=== PATIENT | female | born 1945 | race Caucasian/White ===

== ENCOUNTER → 2016-11-02 | Outpatient (CLI) | payer MEDICARE, OTHER ==
[~2016-11-02] MED LIST: ALBU8.5H INH; AMLO10TA4 PO; ATOR80TA17 PO; BUDE10.2 INH; CALC-587 PO; COFF400C; GABA-338 PO; HYDR25TA PO; LACT1CAP67 PO; MULT-806 PO; RANI150T12 PO; SERT-77 PO; SOTA80TA42 PO; UBID1CAP47 PO; [UNRECOGNIZED DRUG - REMARK] PO
[2016-11-02 17:00] LABS: HCT - HEMATOCRIT 29.7 % (36-46); HGB - HEMOGLOBIN 8.3 GM/DL (12-16); MEAN CORPUSCULAR HGB 22.8 UUG (26-34); MEAN CORPUSCULAR HGB CONC(MCHC 27.9 GM/DL (31-37); MEAN CORPUSCULAR VOLUME 81.6 UM3 (80-100); MEAN PLATELET VOLUME 8.7 UM3 (9.4-12.4); RED BLOOD COUNT 3.64 M/MM3 (4.00-5.20); WBC - WHITE BLOOD COUNT 9.5 T/MM3 (4.5-11.0)
[2016-11-02 17:16] LABS: BAND NEUTROPHILS # 0.3 T/MM3; BASOPHILS # (MANUAL) 0.1 T/MM3 (0-0.2); LYMPHOCYTES # (MANUAL) 2.2 T/MM3 (1-4.8); NEUTROPHILS #(MANUAL)-ABSOLUTE 6.9 T/MM3 (1.8-7.7); TOTAL CELLS COUNTED 100 %
[2016-11-02 17:17] LABS: HYPOCHROMASIA 1+
== END ==
LOC: LAB 16:45
PROVIDERS: ATTEND Surgery
DX: D50.9 Iron deficiency anemia, unspecified (principal)
CPT/HCPCS: 36415; 85007; 85027

== ENCOUNTER 2016-11-11 07:17 | Day surgery (SDC) | payer MEDICARE, OTHER ==
[~2016-11-11] VITALS: Ht 162.6 cm; Wt 135.0 kg
[2016-11-11] VITALS (8 sets, daily range): BP systolic 96–143; BP diastolic 56–79; PULSE 70–82; RESP 16–24; TEMP 98.1–98.3; O2SAT 93–97; Ht 162.6 cm; Wt 135.0 kg
[~2016-11-11 07:17] MED LIST changes: -COFF400C; +FERR-70 PO; +LIDOCAINE 1% (10mg/ml) 2ml SDV INJ ONE; +LR 1,000 ML IV SCH; +OMEP20CA10 PO; -RANI150T12 PO; -[UNRECOGNIZED DRUG - REMARK] PO
--- OUTSIDE RECORDS SUMMARY | 2016-11-11 07:22 | XMS REPORT | Continuity of Care Document ---
Author Author [facility] Organization [facility] Address Unknown Phone Unavailable Allergies Medications Problems Procedures Results Encounters ACCT No. Visit Date/Time Discharge Status Pt. Type Provider Facility Loc./Unit Complaint [id number] 08/11/2016 10:20:00 Document Registration
--- OUTSIDE RECORDS SUMMARY | 2016-11-11 07:22 | XMS REPORT | Referral Summary ---
Author Author [facility] Organization [facility] Address Unknown Phone Unavailable Care Team Providers Care Toll Relief Operator Name Role Phone Saad Faria Primary Care Physician [phone] Encounter [facility] [id number] Date(s): 09/19/16 - 09/19/16 [facility] [address], [place] [address] Discharge Disposition: 01-Home or Self Care Attending Physician: Chase Medina MD Vital Signs No data available for this section Problem List No data available for this section Allergies, Adverse Reactions, Alerts No data available for this section Medications No data available for this section Results No data available for this section Immunizations No data available for this section Procedures No data available for this section Social History No data available for this section Assessment and Plan No data available for this section
--- NOTE | 2016-11-11 07:56 | NUR ---
ANESTHESIA ORDERS Azeem CHAUDHRY CRNA INFORMED THAT PT STATES SHE HAD A COUGH DROP AT ABOUT 0700. IN ADDITION, UPON PHYSICAL EXAM, PT NOTED TO HAVE COURSE WHEEZING ON EXPIRATION AND REQUIRES 4L O2 TO MAINTAIN SAT. THIS IS A HOME ORDER. NEW ORDERS RECEIVED FOR XOPENEX BREATHING TREATMENT.
[2016-11-11] MEDS ORDERED: LEVALBUTEROL INH.SOLN. 1.25mg/3ml Neb. AEROSOL ONE (08:00)
--- NOTE | 2016-11-11 10:03 | ANESPREOP ---
Anesthesia Record Date and Time DATE: 11/11/16 TIME: 10:00 Proposed Surgical Procedure COLONOSCOPY AND ESOPHAGOGASTRODUODENOSCOPY NPO since: 1800 solid food, 0600 cough drop Allergies: Coded Allergies: Sulfa (Sulfonamide Antibiotics) (Verified Allergy, Intermediate, HIVES, 06/11) tramadol (Verified Allergy, Intermediate, ITCHING, 04/10/12) Uncoded Allergies: BEE STINGS (Allergy, Intermediate, SWELLING, 04/14/08) Ht/Wt/BMI Height: 5 ' 4.00 " Weight: 135.000 kg BMI: 51.1 kg/m2 Vital Signs Date Time Temp Pulse Resp B/P Pulse Ox O2 Delivery O2 Flow Rate FiO2 11/11/16 08:17 66 11/11/16 08:17 16 97 11/11/16 07:43 98.3 143/79 Nasal Cannula 4.00 Medications Inpatient Medications Current Medications Medications (Trade) Dose Ordered Sig/Damon Start Time Stop Time Status Last Admin Dose Admin Lactated Ringer's (Lactated Ringers) 1,000 ml @ 50 mls/hr Q20H 11/11/16 07:00 11/11/16 08:41 50 MLS/HR Albuterol Sulfate (Proair HFA 90 mcg/actuation) 8.5 Gm Hfa.aer.ad, 1 PUFF INH PRN, (Reported) Last Taken: on 11/10/16 1600 Amlodipine Besylate (Norvasc) 10 Mg Tablet, 10 MG PO DAILY, (Reported) Last Taken: on 11/11/16 0600 Atorvastatin Calcium (Lipitor) 80 Mg Tablet, 1 TAB PO DAILY, (Reported) Last Taken: on 11/10/16 0900 Budesonide/Formoterol Fumarate (Symbicort 160- 4.5 Mcg Inhaler) 10.2 Gm Hfa.aer.ad, 2 PUFF INH BID, (Reported) Last Taken: on 11/10/16 0900 Calcium Carbonate/Vitamin D3 (Calcium + D Tablet) 1 Udtab Tablet, 1 TAB PO DAILY, (Reported) Last Taken: on 11/10/16 0900 Ferrous Sulfate (Ferrous Sulfate) 325 Mg Tablet , 1 TAB PO TIDWM, (Reported) BEST WITH FOOD. Last Taken: on 11/10/16 1800 Gabapentin (Gabapentin) 300 Mg Capsule, 1 CAP PO BID, (Reported) Last Taken: on 11/10/16 1200 Hydrochlorothiazide (Hydrochlorothiazide) 25 Mg Tablet, 1 TAB PO DAILY, (Reported) Last Taken: on 11/10/16 0900 Lactobacillus Rhamnosus Gg (Probiotic) 1 Each Capsule, 1 EACH PO DAILY, (Reported) Last Taken: on 11/10/16 09 Multivitamins (Multivitamin) 1 Tab Tablet, 1 TAB PO DAILY, (Reported) Last Taken: on 11/10/16 09 Omeprazole (Omeprazole) 20 Mg Capsule.dr, 20 MG PO ACB, (Reported) Take 1 capsule, by mouth, one time a day (before breakfast). Last Taken: on 11/11/16 06 Sertraline Hcl (Zoloft) 100 Mg Tablet, 100 MG PO DAILY, (Reported) Last Taken: on 11/10/16 09 Sotalol Hcl (Sotalol) 80 Mg Tablet, 80 MG PO BID, (Reported) Last Taken: on 11/11/16 06 Ubidecarenone/Vit E Acetate (Co Q-10 100 Mg Softgel) 1 Each Capsule, 1 EACH PO DAILY, (Reported) Last Taken: on 11/10/16 09 Currently on Beta Amada: Yes Beta Amada Last Taken: 11/11/16 06 Medical/Surgical History Anesthesia PMH: Reports: *Dyspnea (UPON EXERTION), *Hypertension (TAKES MEDS), Anxiety, Arthritis (OSTEOARTHRITIS), COPD (oxygen 4l/nc), Depression, Hiatal Hernia, Obesity (Morbid), Other (fibromyalgia), Reflux (controlled), Sleep Apnea Smoking Status: Former smoker (quit 20 years ago.) # of Packs per Day: 1 # of Years: 33 Use Chewing Tobacco?: No Second Hand Exposure: No Substance Use Type: does not use Alcohol Intake: daily Last Drink: unknown HX of Last Menstrual Period: AGE 54 Past Surgical History Orthopedic Surgeries: Yes - TOTAL RT KNEE AND BILATERAL HIP REPLACEMENT Abdominal Surgeries: No Genitourinary Surgeries: No Cardiac Surgeries: No Endocrine Surgeries: No Reproductive Surgeries: No Neurological Surgeries: No Ear Surgeries: No Nose Surgeries: Yes - SEPTOPLASTY Throat Surgeries: No Other Surgeries: Yes - C SCOPE, hemorrhoidectomy,EGD Anesthesia Adverse Reactions: FOUND none Family Hx of Anesthesia Advers: none Hx of Motion Sickness: No Physical Exam Respiratory: Bilat breath sounds equal, Rales (mild), Wheezing (mild experatory ) Cardiovascular: FOUND Regular rate, rhythm Airway Assessment Mallampati Score: III TMD: 3 Fingerbreadths Neck Extension: Poor Overall Assessment: May Be Diff Intubation ASA: 3 Plan Anesthesia Plan: TIVA, GETA Discussion Discussed risks/options/alternatives of anesthesia and questions answered. Patient consents. Nursing pain assessment noted. Present: Family Member Attestation Statement Prior to the delivery of any anesthetic medication, I examined the patient, developed the plan, obtained the patient's consent and discussed the risk and benefits of the procedure with the patient/guardian. JACEK CHAUDHRY CRNA Nov 11, 2016 10:03
[2016-11-11] MEDS ORDERED: LIDOCAINE VISCOUS 2% Oral Soln 15ml UD ONE (10:40)
[2016-11-11] MEDS ORDERED: BENZOCAINE 20% Top. Anesth. SPRAY UD ONE (10:40)
[2016-11-11] MEDS ORDERED: PROPOFOL 500mg 50 ML IV ONE ×3 (10:51→11:55)
--- NOTE | 2016-11-11 12:13 | GSPOSTPROC ---
Immediate Operative Note DATE: 11/11/16 TIME: 12:12 Postop Diagnosis: Anemia Surgical Procedure: EGD w/Biopsies, C-scope w/Polypectomy Surgeon: Scott ASA: 3 SANG LOPEZ MD Nov 11, 2016 12:13
--- NOTE | 2016-11-11 14:12 | ANESPO ---
Post-Op Note Date 11/11/16 Time: 14:11 Status Pt Participated in Evaluation: Pt participated by phone Vital Signs Date Time Temp Pulse Resp B/P Pulse Ox O2 Delivery O2 Flow Rate FiO2 11/11/16 12:25 72 16 124/68 93 Nasal Cannula 4.00 11/11/16 12:10 98.1 Respiratory Function: Airway patent, Regular respirations Cardiovascular Function: Regular pulse Mental Status: Alert/oriented Pain Level Intensity: 0 Hydration: Taking po fluids Complications during Recovery None apparent Follow-Up Instructions Instructions Per Surgeon ALEXANDRIA LEWIS I SEISMIC PROSPECTING OBSERVER HELPER Nov 11, 2016 14:11
--- NOTE | 2016-11-11 20:25 | OPNOTEF ---
DATE OF OPERATION 11/11/2016 PREOPERATIVE DIAGNOSES 1. Iron deficiency anemia. 2. Gastroesophageal reflux disease. 3. Extensive colonic diverticulosis. 4. Personal history of adenomatous colon polyps. 5. Internal and external hemorrhoids. POSTOPERATIVE DIAGNOSES 1. Iron deficiency anemia. 2. Gastroesophageal reflux disease. 3. Small hiatal hernia. 4. Chronic gastritis. 5. Mild duodenitis. 6. Extensive colonic diverticulosis. 7. Cecal polyp. 8. Internal and external hemorrhoids. OPERATION Esophagogastroduodenoscopy with biopsies and total colonoscopy with polypectomy. SURGEON Evgeny Chavez MD ANESTHESIA TIVA ASA CLASS 3. FINDINGS The esophagus appeared completely normal. There was no distal esophagitis. There were no esophageal erosions or ulcers. There were no Barclay's esophagus changes at the esophagus. The patient does have a small hiatal hernia. There were some changes of the gastric antrum which looked like some mild chronic gastritis. There were no gastric erosions or ulcers. There was some mild duodenitis. There were no duodenal erosions or ulcers. No bright red blood or old blood was seen anywhere at the upper gastrointestinal tract. No source for bleeding which would lead to iron deficiency anemia was seen at the upper gastrointestinal tract. DESCRIPTION OF PROCEDURE There were no colon or rectal tumors. The patient did have one polyp at the cecum. There were no rectal polyps. There was no melanosis coli. There were no colonic angiodysplasia lesions. The patient does have diverticulosis throughout the colon. There was no inflammatory bowel disease. The patient does have prominent internal and external hemorrhoids. No bright red blood or old blood was seen at the colon or rectum. No obvious source for bleeding which would lead to iron deficiency anemia was found at the colon or rectum. DESCRIPTION OF OPERATION The patient was brought to the endoscopy room. The patient was placed in the left lateral recumbent position on the cart in the endoscopy room. The patient was premedicated with intravenous sedation medication administered by the nurse transit planner. The Olympus upper GI endoscope was used. The upper GI endoscope was introduced into the esophagus. The upper GI endoscope was advanced down through the esophagus and stomach and into the duodenum. The upper GI endoscope was withdrawn from the duodenum back into the stomach. The upper GI endoscope was retroflexed and the gastroesophageal junction was viewed from below. The upper GI endoscope was straightened out. A sample of prepyloric antral gastric mucosa was obtained with the endoscopic biopsy forceps for CLOtest studies. The endoscopic biopsy forceps was used to perform some biopsies of antral gastric mucosa. These were submitted for study by the pathologist. The upper GI endoscope was then withdrawn out through the stomach and esophagus and removed from the patient. The patient was kept in the left lateral recumbent position on the cart in the endoscopy room. The patient continued to receive intravenous sedation medication administered by the nurse transit planner. Total colonoscopy was performed. The Olympus colonoscope was used. The colonoscope was introduced into the rectum. The colonoscope was advanced up through the rectum and colon all the way up to the cecum. The appendiceal orifice was visualized. The ileocecal valve was visualized. A cecal polyp was present. This polyp was removed with the electrocautery snare device and retrieved and submitted as a specimen for study by the pathologist. The colonoscope was then withdrawn out through the colon and rectum and removed from the patient. Digital rectal examination was performed. Findings throughout the procedure were as described above. The patient did continue to receive intravenous sedation medication administered by the nurse transit planner throughout the operation. The patient did tolerate the operation well. JEOVANY
== END 2016-11-11 13:50 | disposition home or self-care (01) ==
LOC: SCU 07:17
PROVIDERS: ATTEND Surgery
DX: K29.60 Other gastritis without bleeding (principal); K29.80 Duodenitis without bleeding; K21.9 Gastro-esophageal reflux disease without esophagitis; D50.9 Iron deficiency anemia, unspecified; K44.9 Diaphragmatic hernia without obstruction or gangrene; D12.0 Benign neoplasm of cecum; K57.30 Diverticulosis of large intestine without perforation or abscess without bleeding; Z86.010 Personal history of colon polyps; K64.4 Residual hemorrhoidal skin tags; K64.8 Other hemorrhoids; I49.3 Ventricular premature depolarization; G47.30 Sleep apnea, unspecified; I10 Essential (primary) hypertension; E66.01 Morbid (severe) obesity due to excess calories; Z68.43 Body mass index [BMI] 50.0-59.9, adult; J44.9 Chronic obstructive pulmonary disease, unspecified; F32.9 Major depressive disorder, single episode, unspecified; M79.7 Fibromyalgia; E78.5 Hyperlipidemia, unspecified; I87.2 Venous insufficiency (chronic) (peripheral); R32 Unspecified urinary incontinence; Z79.899 Other long term (current) drug therapy
CPT/HCPCS: 43235; 45385; 87081; 94640; J7120; J7614

== ENCOUNTER → 2016-11-17 | Outpatient (CLI) | payer MEDICARE, OTHER ==
[~2016-11-17] MED LIST changes: -LIDOCAINE 1% (10mg/ml) 2ml SDV INJ ONE; -LR 1,000 ML IV SCH
--- NOTE | 2016-11-17 10:45 | DI ---
Indication: ITS.REASON: R06.02 SHORTNESS OF BREATH PROCEDURE: US ABDOMINAL AORTA, NON-DUPLEX: Encounter: Initial Comparison: None Technique: Grayscale sonographic imaging of the abdominal aorta was performed. Findings: No aortic aneurysm identified. The proximal, middle and distal aorta is normal in caliber. Noted is a large cystic structure in the midline abdomen at the level of the umbilicus measuring 14.5 x 14.3 x 13.7 cm in size which appears separate from the bladder. No internal vascularity within this structure. Impression: Large cystic mass in the midline abdomen of uncertain etiology. This could be due to ovarian cystic neoplasm, enteric duplication cyst, unusual bladder diverticulum or urachal abnormality among other possibilities. Recommend contrast enhanced CT of the abdomen and pelvis for further evaluation. .
== END ==
LOC: IMA 09:49
PROVIDERS: ATTEND Family Medicine
DX: M81.0 Age-related osteoporosis without current pathological fracture (principal); E28.39 Other primary ovarian failure; R93.5 Abnormal findings on diagnostic imaging of other abdominal regions, including retroperitoneum; N95.8 Other specified menopausal and perimenopausal disorders; Z78.0 Asymptomatic menopausal state; R06.02 Shortness of breath

== ENCOUNTER → 2016-11-23 | Outpatient (CLI) | payer MEDICARE, OTHER ==
[~2016-11-23] MED LIST changes: +IOHEXOL 300 MG/ML 100ml INJECTION ONE; +NORMAL SALINE 100 ML ONE; +SALINE FLUSH 10ml SYRINGE ONE
--- NOTE | 2016-11-23 10:12 | DI ---
Indication: ITS.REASON: R19.00 Intra-abdominal and pelvic swelling, mass and lump, unspec PROCEDURE: CT ABD/PELVIS W/CONTRAST ONLY: Encounter: Initial Comparison: Abdominal ultrasound dated November 17, 2016 Technique: Axial CT images were performed through the abdomen and pelvis after the administration of intravenous contrast. Coronal and sagittal two-dimensional reformats. Automated Exposure Control and Iterative Reconstruction dose reducing techniques were utilized. Contrast: Omnipaque 300 98 mL Findings: Atelectasis in both lung bases, left greater than right. Multiple cysts scattered throughout the liver. No bile duct dilatation. Small gallstones within the gallbladder. The spleen, pancreas and adrenal glands are within normal limits. The kidneys are normal. No abdominal or pelvic lymphadenopathy. Evaluation of the pelvis is extremely limited due to metallic artifact from bilateral hip replacements. Despite this severe artifact I believe I do see a small decompressed bladder just beneath a large round fluid-filled mass occupying the majority of the pelvis and lower abdomen measuring up to 14.8 cm craniocaudally and 16 cm transversely on coronal image #26. This has an internal attenuation of 46 Hounsfield units, higher than simple fluid. This could potentially arise from either ovary. There is no evidence of bowel obstruction or free fluid. Colonic diverticulosis without evidence of acute diverticulitis. The appendix is normal. Bone windows show mild degenerative change in the lumbar spine. The uterus cannot be clearly identified given the metallic artifact in the pelvis. Impression: Large cystic abdominal and pelvic mass measuring up to 16 cm in size. Recommend surgical consultation for consideration of excision. This could be due to benign or malignant ovarian neoplasm. The bladder is difficult to see on this exam due to artifact however this mass appeared separate from the bladder on prior ultrasound. .
== END ==
LOC: IMA 08:28
PROVIDERS: ATTEND Family Medicine
DX: R19.09 Other intra-abdominal and pelvic swelling, mass and lump (principal)
CPT/HCPCS: 74177; J7050; Q9967

== ENCOUNTER → 2016-11-25 | Outpatient (CLI) | payer MEDICARE, OTHER ==
[~2016-11-25] MED LIST changes: -IOHEXOL 300 MG/ML 100ml INJECTION ONE; -NORMAL SALINE 100 ML ONE; -SALINE FLUSH 10ml SYRINGE ONE
== END ==
LOC: WC.BC 10:53
DX: Z12.31 Encounter for screening mammogram for malignant neoplasm of breast (principal); N64.59 Other signs and symptoms in breast; N64.89 Other specified disorders of breast; R92.8 Other abnormal and inconclusive findings on diagnostic imaging of breast
CPT/HCPCS: 77063; G0202

== ENCOUNTER → 2016-11-29 | Outpatient (CLI) | payer MEDICARE, OTHER | LOC: WC.BC 10:59 | PROVIDERS: ATTEND Family Medicine | DX: D48.61 Neoplasm of uncertain behavior of right breast (principal); N64.59 Other signs and symptoms in breast; N64.89 Other specified disorders of breast ==

== ENCOUNTER → 2016-12-01 | Outpatient (CLI) | payer MEDICARE, OTHER ==
[~2016-12-01] MED LIST changes: +LIDOCAINE 1% 30ml (STERI-PAK) ONE; +LIDOCAINE 2%/EPI 1:100,000 20ml MDV ONE; +NORMAL SALINE 250 ML IV ONE
--- NOTE | 2016-12-01 19:23 | PROCEDUREF ---
DATE OF PROCEDURE 12/01/2016 DIAGNOSIS BEFORE PROCEDURE Suspicious cluster of coarse heterogeneous calcifications at right breast demonstrated on 11/25/2016 bilateral screening mammograms and 11/29/2016 unilateral right diagnostic mammograms. DIAGNOSIS AFTER PROCEDURE Suspicious cluster of coarse heterogeneous calcifications at right breast demonstrated on 11/25/2016 bilateral screening mammograms and 11/29/2016 unilateral right diagnostic mammograms. PROCEDURE Stereotactic image-guided percutaneous vacuum-assisted biopsy of suspicious cluster of calcifications at right breast. SURGEON Dr. Chavez FINDINGS The patient did have a cluster of coarse heterogeneous calcifications at the right breast central to the nipple at middle depth demonstrated on 11/25/2016 bilateral screening mammograms and 11/29/2016 unilateral right diagnostic mammograms. This cluster of calcifications was thought to be a BI-RADS category 4 (suspicious abnormality) finding. The cluster of calcifications at the right breast did appear the same on winding inspector and tester films and on stereotactic mammogram films performed today as they had on the mammogram films performed on 11/25/2016 and 11/29/2016. The patient did continue to have a suspicious cluster of calcifications at the right breast central to the nipple at middle depth. Imaging of the vacuum-assisted biopsy specimens from the procedure today did show multiple calcifications within the biopsy specimens. A right mammogram was performed after the procedure today. The suspicious cluster of calcifications at the right breast appeared to be completely removed on mammogram films performed after the procedure today. A biopsy cavity was present at the site where the calcifications had previously been located. There was a biopsy site marker clip present within this biopsy cavity. The biopsy cavity and the biopsy site marker clip were in the same position on the mammogram films performed today where the cluster of calcifications had been located on preoperative mammogram films.. DESCRIPTION OF PROCEDURE The patient was placed on the [facility] table [facility]. Fur Floor Worker film was performed with a craniocaudal approach. The calcifications were demonstrated on the winding inspector and tester film. Stereotactic images were performed. The suspicious cluster of calcifications at the right breast was able to be demonstrated on the stereotactic images. The stereotactic images were thought to be satisfactory. Targeting was carried out with a craniocaudal approach. The stroke margin was negative. The biopsy needle was therefore fired before it was advanced into the breast. The skin at the biopsy site was prepped with Betadine. The skin at the biopsy site was infiltrated with lidocaine without epinephrine. A small incision was made at the right breast. The [employer] Eviva Stereotactic-Guided Breast Biopsy System was used to perform the biopsies. The 9-gauge biopsy needle was advanced into the breast. The biopsy device had already been fired prior to advancement of the biopsy needle into the breast. Post-fire stereotactic images were then performed. The post-fire stereotactic images were thought to be satisfactory. There did appear to be good positioning of the 9-gauge biopsy needle in relationship to the cluster of calcifications. After the biopsy needle was documented to be in proper position in relationship to the cluster of calcifications at the right breast, lidocaine with epinephrine was infiltrated into the biopsy site through the biopsy needle. Biopsies were then performed with the [employer] Eviva Stereotactic-Guided Breast Biopsy System with a 9-gauge needle. Imaging of the core biopsy specimens did show multiple calcifications within the specimens. The 9-gauge biopsy needle was withdrawn from the patient. A [employer] SecurMark biopsy site marker was then deployed at the biopsy site. Stereotactic images of the biopsy site were then performed and the stereotactic images did show satisfactory placement of the marking clip at the biopsy cavity. The same stereotactic images showed that the cluster of calcifications appeared to have been removed at the biopsy site. The right breast was placed in compression for a period of time. The skin incision was then closed with Dermabond. Post-procedure unilateral right mammogram films were then performed to document the position of the marking clip in relationship to the biopsy cavity. The unilateral right mammogram films were reviewed with Dr. King Sommers. Results were as described above. The patient did appear to tolerate the procedure well. [facility]. JEOVANY
== END ==
LOC: WC.BC 07:58
PROVIDERS: ATTEND Surgery
DX: D24.1 Benign neoplasm of right breast (principal); N60.11 Diffuse cystic mastopathy of right breast; N60.81 Other benign mammary dysplasias of right breast; N64.59 Other signs and symptoms in breast; R92.1 Mammographic calcification found on diagnostic imaging of breast
CPT/HCPCS: 19081; 88305; A4648; G0206; J7050